=== PATIENT | male | born 1980 | race American Indian/Alaskan Native ===

== ENCOUNTER 2020-06-01 12:00 | Emergency (ER) | payer SELFPAY ==
[2020-06-01] MEDS ORDERED: HALOPERIDOL LACTATE 5 MG/1 ML INJ IM PRN (12:52)
[2020-06-01] MEDS ORDERED: LORazepam 2 MG/ML VIAL IM STA (12:52)
[2020-06-01] MEDS ORDERED: HALOPERIDOL LACTATE 5 MG/1 ML INJ IM STA (12:53)
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
[2020-06-01 13:48] LABS: Hematocrit 33.9 % (35.5-45.6); Hemoglobin 12.1 gm/dl (11.8-15.2); Mean Corpuscular HGB Conc 36 % (32-34); Mean Corpuscular Volume 93 fl (84-94); Platelet Count 256 K/mm3 (140-440); Red Blood Count 3.66 M/mm3 (3.65-5.03); Red Cell Distribution Width 14.3 % (13.2-15.2)
--- NOTE | 2020-06-01 13:55 | XRay Report ---
CHEST 1 VIEW INDICATION: cp. COMPARISON: None. FINDINGS: Support devices: None. Heart: Within normal limits. Lungs/Pleura: No acute air space or interstitial disease. Additional findings: None. IMPRESSION: No acute abnormality. Signer Name: Juan C Kirby MD Signed: 06/01/2020 1:50 PM Workstation Name: [id number]
[2020-06-01 14:00] LABS: INR 1.03 (0.87-1.13)
[2020-06-01 14:07] LABS: BUN/Creatinine Ratio 14; Blood Urea Nitrogen 11 mg/dL (9-20); Calcium 9.2 mg/dL (8.4-10.2); Hemolysis Index 6
[2020-06-01] MEDS ORDERED: LACTATED RINGERS 1,000 ML IV ONE (14:10)
[2020-06-01] MEDS ORDERED: SPIRONOLACTONE 100 MG PO SCH (15:30)
--- NOTE | 2020-06-01 15:45 | Cat Scan Report ---
CTA CHEST WITH IV CONTRAST INDICATION: cp dyspnea + d dimer. TECHNIQUE: Axial CT images were obtained through the chest after injection of 100 cc IV contrast. 3 plane MIP re constructions were produced. All CT scans at this location are performed using CT dose reduction for ALARA by means of automated exposure control. COMPARISON: None available. FINDINGS: Exam is slightly limited by sartorius motion artifact. PULMONARY ARTERIES: No pulmonary emboli. THORACIC AORTA: No acute abnormality. HEART: Normal. CORONARY ARTERIES: No significant calcification. PLEURA: No pleural effusion. No pneumothorax. LYMPH NODES: No significant adenopathy. LUNGS: Mild/moderate subpleural pulmonary emphysema. ADDITIONAL FINDINGS: None. UPPER ABDOMEN: No acute findings. SKELETAL STRUCTURES: No significant osseous abnormality. IMPRESSION: 1. No CT evidence for pulmonary embolism. 2. No acute findings. 3. [id number] emphysema. Signer Name: Matthieu Mike MD Signed: 06/01/2020 3:41 PM Workstation Name: [id number]
[2020-06-01] MEDS ORDERED: ALBUTEROL 2.5 MG/3 ML NEBU IH PRN (15:57)
[2020-06-01] MEDS: [UNRECOGNIZED DRUG - OTHER] PO SCH (16:21)
[2020-06-01] MEDS: SPIRONOLACTONE 50 MG TAB PO SCH (16:36)
[2020-06-01 17:25] LABS: Bilirubin,Urine NEG (Negative); Blood,Urine NEG (Negative); Color,Urine Yellow (Yellow); Mucus,Urine FEW /HPF; Protein,Urine <15 mg/dL mg/dL (Negative); Urobilinogen,Urine < 2.0 mg/dL (<2.0)
[2020-06-01 17:32] LABS: Amphetamine Screen,Urine Negative; Benzodiazepines Screen,Urine Negative; Cocaine Screen,Urine Negative; Methadone Screen,Urine Negative; Opiate Screen,Urine Negative
[2020-06-01 17:46] LABS: Cannabinoid Screen,Urine Positive
[2020-06-01] MEDS: LORazepam 2 MG/ML VIAL IM PRN (21:28)
[2020-06-02] MEDS: LORazepam 2 MG/ML VIAL IM PRN ×2 (08:47→21:52)
[2020-06-02] MEDS: SPIRONOLACTONE 50 MG TAB PO SCH (11:06)
--- NOTE | 2020-06-02 13:11 | Consultation ---
History of Present Illness - Reason for Consult Consult date: 06/02/20 Reason for consult: MHE Requesting physician: LISA HUANG - Chief Complaint Chief complaint: SI - History of Present Psychiatric Illness Per [facility]: Pt is a 39 yo AA transgender female presenting to ED for MHE, as pt reports chest pain and SI. During ax, pt presented in distress, reporting chest tightening and shortness of breath. Pt is alert and oriented x 4 and presents as cooperative. Pt displays lucid thought process and answers questions appropriately. Pt identified active SI, identifying a plan to overdose on medication. Pt stated, I dont want to be here anymore. I cant take it. Pt reports A/H that are command in nature. No HI identified. 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 Pt provides minimal insight regarding hx of mental health, informing friction welding machine operator that she does not know what dx is but states that she has history of A/H and SI attempts. Pt identified last IP admission as 6-7 years ago. Pt reports residing with roommate. Pt denies legal issues. Pt denies substance use. 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 No issues with appetite or sleep identified. PSYCH HPI Patient is a 39-year-old transgender female with past psychiatric history of schizophrenia and bipolar and past medical history of HIV who presented to the ED for mental health evaluation due to suicidal ideation. Patient reported she has been having her financial issues lately complete here by being alone having friends were not really supportive but put their own problems on her making her feel weighed down and depressed without any external help has complicated her depression and now feeling suicidal, hopelesss with no johnson left again to experience in world. She reports waking up almost every morning with pressure already built up even if she had hoped for a better day. Patient describes a depressed mood, Poor appetite and sleep as well and endorses wanting mental health intervention. PAST PSYCHIATRIC HISTORY Diagnoses: Bipolar, schizophrenia Suicide attempts or Self-harm behavior: Yes Prior psychiatric hospitalizations: Yes Substance Abuse history: none reported Previous psychiatric medications tried: Yes Outpatient treatment: none PAST MEDICAL HISTORY: HIV Family Psychiatric History None reported or documented SOCIAL HISTORY Marital Status: single Living Arrangements: with self Employment Status: employed Access to guns/weapons: none reported Education: History of Abuse: none reported Legal History: none reported REVIEW OF SYSTEMS Constitutional: Negative for weight loss ENT: Negative for stridor Respiratory: Negative for cough or hemoptysis All other systems reviewed and are negative MENTAL STATUS EXAMINATION General Appearance and Behavior: Age appropriate, good hygiene, wearing appropriate clothes, lying in bed, good eye contact, cooperative polite/ with questioning. Cooperation: Participating/engaged Psychomotor Behavior: unremarkable and within normal limits Mood: Depressed, Affect and affective range: sad Thought Process: Fluent/Logical Thought Content: Hopelessness, Helplessness Speech: Normal volume, Regular rate and rhythm Intellectual Functioning: Average Suicidal Ideation: Suicidal Homicidal Ideation: Denies HI Impulse Control: Impaired Insight and Judgment: Normal insight and judgment Memory: Normal Attention: Normal Orientation: Alert, oriented Diagnoses: Assessment and Plan - Psychiatric problem (1) Bipolar 2 disorder, major depressive episode Current Visit: Yes Status: Acute Treatment Plan MEDICATIONS: Valproate and Prozac started Risks, benefits and alternatives of medications discussed with the patient, questions answered and consent obtained from patient. PSYCHOTHERAPY: Supportive psychotherapy provided MEDICAL: Per primary team DELIRIUM PRECAUTIONS: Please re-orient patient frequently, keep lights on during the day, and minimize benzodiazepines and opiates as these medications could worsen patient's confusion. MEDICAL TERRITORY MANAGER: DISPOSITION: Recommend acute inpatient psychiatric hospitalization at this time LEGAL STATUS: 1013 FOLLOW-UP: Will follow Thank you for the consult. Please contact with any questions and/or concerns. Medications and Allergies Allergies Allergy/AdvReac Type Severity Reaction Status Date / Time No Known Allergies Allergy Unverified 06/01/20 12:14 Home Medications Medication Instructions Recorded Confirmed Last Taken Type Bictegrav/Emtricit/Tenofov Ala 1 each PO DAILY 06/01/20 06/01/20 Unknown History [Biktarvy 50-200-25 mg (Nf)] Spironolactone [Aldactone] 100 mg PO QDAY 06/01/20 06/01/20 Unknown History Active Meds: Active Medications Albuterol (Proventil) 2.5 mg IH Q4HR PRN PRN Reason: Wheezing Haloperidol Lactate (Haldol) 5 mg IM Q6HR PRN PRN Reason: Agitation Lorazepam (Ativan) 2 mg IM Q4HR PRN PRN Reason: Agitation Last Admin: 06/02/20 08:47 Dose: 2 mg Documented by: Miscellaneous Medication (Bictegrav/Emtricit/Tenofov Ala) 1 each PO DAILY AVANI Last Admin: 06/01/20 16:21 Dose: Not Given Documented by: Spironolactone (Aldactone) 100 mg PO QDAY [facility] Last Admin: 06/02/20 11:06 Dose: 100 mg Documented by: Mental Status Exam - Vital signs Last Vital Signs Temp 97.6 F 06/02/20 08:13 Pulse 67 06/02/20 08:13 Resp 20 06/02/20 08:13 BP 141/94 06/02/20 08:13 Pulse Ox 100 06/02/20 08:13 Results Result Diagrams: 06/01/20 13:14 06/01/20 13:14 Abnormal lab results 06/01/20 06/01/20 06/01/20 Range/Units 13:14 13:14 13:14 WBC 4.0 L (4.5-11.0) K/mm3 Hct 33.9 L (35.5-45.6) % MCH 33 H (28-32) pg MCHC 36 H (32-34) % D-Dimer 1180.70 H (0-234) ng/mlDDU Carbon Dioxide 21 L (22-30) mmol/L Total Creatine Kinase 296 H (55-170) units/L Ur Specific [place] (1.003-1.030) Salicylates (2.8-20.0) mg/dL Acetaminophen (10.0-30.0) ug/mL Plasma/Serum Alcohol (0-0.07) % 06/01/20 06/01/20 06/01/20 Range/Units 13:14 13:14 13:14 WBC (4.5-11.0) K/mm3 Hct (35.5-45.6) % MCH (28-32) pg MCHC (32-34) % D-Dimer (0-234) ng/mlDDU Carbon Dioxide (22-30) mmol/L Total Creatine Kinase (55-170) units/L Ur Specific [place] (1.003-1.030) Salicylates < 0.3 L (2.8-20.0) mg/dL Acetaminophen 5.0 L (10.0-30.0) ug/mL Plasma/Serum Alcohol 0.08 H (0-0.07) % 06/01/20 Range/Units 16:45 WBC (4.5-11.0) K/mm3 Hct (35.5-45.6) % MCH (28-32) pg MCHC (32-34) % D-Dimer (0-234) ng/mlDDU Carbon Dioxide (22-30) mmol/L Total Creatine Kinase (55-170) units/L Ur Specific [place] 1.035 H (1.003-1.030) Salicylates (2.8-20.0) mg/dL Acetaminophen (10.0-30.0) ug/mL Plasma/Serum Alcohol (0-0.07) % All other labs normal. Assessment and Plan - Psychiatric problem (1) Bipolar 2 disorder, major depressive episode Current Visit: Yes Status: Acute
[2020-06-02] MEDS: [UNRECOGNIZED DRUG - OTHER] PO SCH (13:20)
[2020-06-02] MEDS: VALPROIC ACID 250 MG CAP PO SCH ×2 (15:29→21:51)
[2020-06-02] MEDS: SERTRALINE 50 MG TAB PO SCH (15:29)
[2020-06-03] MEDS: SPIRONOLACTONE 50 MG TAB PO SCH (10:16)
[2020-06-03 10:25] VITALS: BP 131/86
[2020-06-03] MEDS: SERTRALINE 50 MG TAB PO SCH (10:25)
[2020-06-03] MEDS: VALPROIC ACID 250 MG CAP PO SCH (10:37)
[2020-06-03] MEDS: [UNRECOGNIZED DRUG - OTHER] PO SCH (10:40)
--- NOTE | 2020-06-03 12:22 | Progress Note ---
Subjective - Reason for Consult Consult date: 06/03/20 Reason for consult: SI - Chief Complaint Chief complaint: The patient's medical record was reviewed and the patient's progress was discussed with the nursing staff. The nurse caring for the patient states the patient has been calm and cooperative and has denies SI/HI or hallucinations. During my interview with the patient today, he is sitting up in bed. He is a/o x 3. He is calm, cooperative and pleasant. The patient makes good eye contact. The patient states he came to the hospital because he "was having stress at home." He says, "I woke up feeling a lot of stress and started having panic attacks." The patient states, "but I don't feel nothing like I felt yesterday. I think I just needed some rest." He laughs and says, "I woke up feeling normal today. I actually feel good." The patient denies SI/HI or any fear or feelings of endangerment. He says "I'm not suicidal at all. I don't even feel like dying at all." The patient says "I just got too much stuff going on to be in here. 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 I got meditate and slow down." Pedro then says, "and I got those meds to help me." He also denies hallucinations of any kind. REVIEW OF SYSTEMS Constitutional: Negative for weight loss ENT: Negative for stridor Respiratory: Negative for cough or hemoptysis All other systems reviewed and are negative MENTAL STATUS EXAMINATION General Appearance: Dressed appropriately Behavior: Calm and cooperative. Good eye contact. Mood: "normal, good" Affect and affective range: Congruent with stated mood Speech: Normal volume, Regular rate and rhythm Thought Process: Goal directed Thought Content: Suicidal Ideation: Denies Homicidal Ideation: Denies Hallucinations: Denies Delusions: None elicited Insight and Judgment: Limited Memory/Cognition: Normal Attention: Normal Assessment 1. Bipolar Disorder, w/o Psychotic Features 2. Generalized Anxiety Disorder TREATMENT PLAN D/C 1013 Zoloft 50mg po daily Depakote DR 500mg po BID Vistaril 25mg po daily prn anxiety Risks, benefits and alternatives of medications discussed with the patient, questions answered and consent obtained from patient. PSYCHOTHERAPY: Supportive psychotherapy provided MEDICAL: Per primary team DELIRIUM PRECAUTIONS: Please re-orient patient frequently, keep lights on during the day, and minimize benzodiazepines and opiates as these medications could worsen patient's confusion. 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 The patient may discharge home once medically clear. The patient understands that if SI/HI or any fear of endangerment are to arise she is to seek immediate assistance including but not limited to the crisis hotline, 911, and/or ER. The despatch clerk to further discuss the safety plan The despatch clerk to give the patient resources for outpatient psychiatry, med assistance programs, and cognitive behavior therapy. She is to follow up with outpatient psych or primary in 7 to 14 days upon discharge The patient is to abstain from THC Will sign off. Thank you for the consult. Please contact with any questions and/or concerns. Mental Status Exam - Vital signs Last Vital Signs Temp 97.9 F 06/03/20 08:15 Pulse 84 06/03/20 10:16 Resp 20 06/03/20 08:15 BP 131/86 06/03/20 10:16 Pulse Ox 99 06/03/20 08:15
== END 2020-06-03 14:10 | disposition home or self-care (01) ==
LOC: EDSEX → ED 12:00 → EEVIPCON 12:00 → ED 06-03 14:10
DX: F31.9 Bipolar disorder, unspecified (principal); F17.200 Nicotine dependence, unspecified, uncomplicated
CPT/HCPCS: 36415; 71045; 71275; 80048; 80307; 81001; 82550; 83735; 84484; 85027; 85379; 85610; 93005; 96372; 99285; J1630; J2060; J7120; Q9967; U0003; 80320; G0480